=== PATIENT | male | born 1935 | race Caucasian/White ===

== ENCOUNTER 2020-03-23 07:21 | Observation (INO) | payer MEDICARE, MEDICAID ==
[~2020-03-23] VITALS: Ht 162.6 cm; Wt 70.0 kg
[~2020-03-23 07:21] MED LIST: SODIUM CHLORIDE 0.9% 1,000 ML IV ONE
[2020-03-23] MEDS ORDERED: LIDOCAINE/PF 1% 30 ML VIAL ONE (07:35)
[2020-03-23] MEDS ORDERED: IOHEXOL 300 MG/ML 50 ML VIAL ONE ×2 (07:35→13:10)
[2020-03-23] MEDS ORDERED: HEPARIN SODIUM 1000 UNITS/NS 1,000 ML ONE (07:35)
[2020-03-23] MEDS ORDERED: IOHEXOL 300 MG/ML 100 ML VIAL ONE ×3 (07:35→13:34)
[2020-03-23] MEDS ORDERED: SODIUM BICARBONATE 50 MEQ/50 ML VIAL ONE (07:35)
[2020-03-23] MEDS ORDERED: SODIUM CHLORIDE 0.9% 1,000 ML ONE (08:36)
[2020-03-23] MEDS ORDERED: CLOP75TA60 PO (09:45)
[2020-03-23] MEDS ORDERED: ATOR10TA84 PO (09:45)
[2020-03-23] MEDS ORDERED: CHOL125C2 PO (09:45)
[2020-03-23] MEDS ORDERED: ICOS1CAP PO (09:45)
[2020-03-23] MEDS ORDERED: METO25XL PO (09:45)
[2020-03-23] MEDS ORDERED: VALS40TA4 PO (09:45)
[2020-03-23 12:43] VITALS: BP 177/67
[2020-03-23] MEDS ORDERED: MIDAZOLAM HCL 2 MG/2 ML VIAL ONE (12:55)
[2020-03-23] MEDS ORDERED: FentaNYL CITRATE PF 100 MCG/2 ML VIAL ONE (12:55)
[2020-03-23] MEDS ORDERED: TICAGRELOR 90 MG TABLET ONE (13:13)
[2020-03-23] MEDS ORDERED: ASPIRIN 325 MG TABLET ONE (13:14)
[2020-03-23] MEDS ORDERED: LIDOCAINE 1% 30 ML/SOD BICARB 8.4% 4 ML SQ ONE (13:15)
[2020-03-23] MEDS ORDERED: HEPARIN SODIUM 1000 UNITS/NS 1,000 ML IARTER ONE (13:15)
[2020-03-23] MEDS ORDERED: MIDAZOLAM HCL 2 MG/2 ML VIAL IVP ONE (13:15)
[2020-03-23] MEDS ORDERED: HEPARIN SODIUM,PORCINE 5,000 UNITS/ML VIAL IVP ONE ×2 (13:15→14:00)
[2020-03-23] MEDS ORDERED: IOHEXOL 300 MG/ML 100 ML VIAL IARTER ONE (13:15)
[2020-03-23] MEDS ORDERED: FentaNYL CITRATE PF 100 MCG/2 ML VIAL IVP ONE (13:15)
[2020-03-23] MEDS ORDERED: TICAGRELOR 90 MG TABLET PO ONE (14:45)
[2020-03-23] MEDS ORDERED: ACETAMINOPHEN 325 MG TABLET PO PRN (14:45)
[2020-03-23] MEDS ORDERED: OxyCODONE HCL/ACETAMINOPHEN 5-325 MG TABLET PO PRN (14:45)
[2020-03-23 16:43] VITALS: BP 153/82
[2020-03-23] MEDS: LISINOPRIL 10 MG TABLET PO SCH (17:49)
[2020-03-23] MEDS: HEPARIN SODIUM,PORCINE 5,000 UNITS/ML VIAL SQ SCH (17:50)
[2020-03-23 19:25] VITALS: BP 149/63
[2020-03-23 20:00] VITALS: BP 149/63
[2020-03-23] MEDS: TICAGRELOR 90 MG TABLET PO SCH (20:48)
[2020-03-23] MEDS: DOCUSATE SODIUM 100 MG CAPSULE PO SCH (20:48)
[2020-03-23] MEDS: CARVEDILOL 12.5 MG TABLET PO SCH (20:48)
[2020-03-23] MEDS ORDERED: ATORVASTATIN CALCIUM 40 MG TABLET PO SCH ×2 (21:00)
[2020-03-23 23:16] VITALS: BP 104/48
[2020-03-24 00:20] VITALS: BP 102/56
[2020-03-24 00:21] VITALS: BP 102/56
[2020-03-24] MEDS: HEPARIN SODIUM,PORCINE 5,000 UNITS/ML VIAL SQ SCH ×2 (00:21→08:06)
[2020-03-24 01:41] VITALS: BP 136/54
[2020-03-24 03:29] VITALS: BP 107/48
[2020-03-24 05:30] VITALS: BP 135/62
[2020-03-24 06:03] LABS: BASOPHILS % (AUTO) 0.2 % (0.0-2.0); EOSINOPHILS % (AUTO) 2.8 % (1.0-6.0); HEMATOCRIT 40.7 % (41-53); HEMOGLOBIN 13.7 g/dL (13.5-17.5); LYMPHOCYTES # (AUTO) 1.4 K/uL (1.0-4.8); LYMPHOCYTES % (AUTO) 19.9 % (22.0-44.0); MEAN CORPUSCULAR HEMOGLOBIN 30.9 pg (26.0-34.0); MEAN CORPUSCULAR HGB CONC 33.6 G/dL (31.0-37.0); MEAN CORPUSCULAR VOLUME 92 fL (80-100); MONOCYTES # (AUTO) 0.7 K/uL (0.1-1.0); MONOCYTES % (AUTO) 9.7 % (2.0-9.0); NEUTROPHILS # (AUTO) 4.8 K/uL (1.8-7.7); NEUTROPHILS % (AUTO) 67.4 % (40.0-70.0); PLATELET COUNT (AUTO) 287 K/uL (150-450); RED BLOOD CELL COUNT(AUTO) 4.43 MIL/uL (4.50-5.90); RED CELL DISTRIBUTION WIDTH 13.3 % (11.5-14.5)
[2020-03-24 06:38] LABS: ALANINE AMINOTRANSFERASE 25 U/L (12-78); ALBUMIN 3.3 g/dL (3.4-5.0); ALKALINE PHOSPHATASE 49 U/L (46-116); ANION GAP 10 mmol/L (8-16); ASPARTATE AMINOTRANSFERASE 24 U/L (15-37); BILIRUBIN,TOTAL 0.8 mg/dL (0.1-1.0); CALCIUM, TOTAL 8.7 mg/dL (8.8-10.5); CARBON DIOXIDE 23 mmol/L (22-29); CHLORIDE 103 mmol/L (98-107); CREATININE 0.97 mg/dL (0.60-1.30); GLUCOSE,RANDOM 97 mg/dL (70-110); POTASSIUM 3.8 mmol/L (3.5-5.1); SODIUM SERUM 136 mmol/L (136-145); UREA NITROGEN, BLOOD 19 mg/dL (7-18)
[2020-03-24 06:47] LABS: GLOMERULAR FILTR. RATE CALC > 60 mL/min (>60)
[2020-03-24] MEDS: LISINOPRIL 10 MG TABLET PO SCH (08:22)
[2020-03-24] MEDS: CARVEDILOL 12.5 MG TABLET PO SCH (08:22)
[2020-03-24] MEDS: DOCUSATE SODIUM 100 MG CAPSULE PO SCH (08:22)
[2020-03-24] MEDS: TICAGRELOR 90 MG TABLET PO SCH (09:00)
[2020-03-24] MEDS ORDERED: LOSARTAN POTASSIUM 25 MG TABLET PO SCH (09:00)
[2020-03-24] MEDS ORDERED: EZETIMIBE 10 MG TABLET PO SCH (09:00)
[2020-03-24] MEDS ORDERED: FAMOTIDINE 20 MG TABLET PO SCH (09:00)
[2020-03-24] MEDS ORDERED: ASPIRIN 81 MG CHEWABLE TABLET PO SCH ×2 (09:00)
[2020-03-24] MEDS ORDERED: ASPI-1450 PO (14:12)
[2020-03-24] MEDS ORDERED: CARV12 PO (14:13)
[2020-03-24] MEDS ORDERED: EZET10TA13 PO (14:13)
[2020-03-24] MEDS ORDERED: ATOR40TA28 PO (14:13)
== END 2020-03-24 17:55 | disposition home or self-care (01) ==
LOC: CATHLAB 07:21 → 5S 07:22 → INTOOBSV 07:22
PROVIDERS: ADMIT Internal Medicine; ATTEND Internal Medicine Interventional Cardiology
DX: I25.119 Atherosclerotic heart disease of native coronary artery with unspecified angina pectoris (principal); I10 Essential (primary) hypertension; Z79.899 Other long term (current) drug therapy
CPT/HCPCS: 36415; 80053; 85025; 87081; 92920; 92928; 93005; 93458; 96372 ×2; 99219 ×2; C1769; C1874; C1887; J1644 ×2; J2250; J3010; J3490 ×2; J7030; Q9967 ×2